=== PATIENT | female | born 1960 ===

== ENCOUNTER 2017-11-04 13:05 | Emergency (ER) | payer OTHER ==
[~2017-11-04] VITALS: Ht 157.5 cm; Wt 63.0 kg
[2017-11-04] MEDS ORDERED: VISTARIL25 MG PO (16:09)
[2017-11-04] MEDS ORDERED: KETO10TA2 PO (16:09)
== END 2017-11-04 16:20 | disposition home or self-care (01) ==
LOC: ER 13:05
DX: R00.2 Palpitations (principal); G44.209 Tension-type headache, unspecified, not intractable; F06.4 Anxiety disorder due to known physiological condition